=== PATIENT | female | born 1990 | race African-American/Black ===

== ENCOUNTER 2017-12-08 12:03 | Emergency (ER) | payer MEDICAID ==
--- NOTE | 2017-12-08 16:44 | ED Physician Chart ---
ED Chief Complaint/HPI - Patient Information Date Seen:: 12/08/17 Time Seen:: 12:15 Chief Complaint:: Toothaches History of Present Illness:: onset x 3 days of toothaches; pt denies trauma, LOC, ALOC, AMS, E/As, H/As, S/T , neck pain, C/P, cough, SOB, congestion, Abd. Pain, A/N/V/D/C, fever, chills, or urinary s/s; pt is eating and is urinating well; pt last urinated one hour [employer] Allergies:: Allergies Allergy/AdvReac Type Severity Reaction Status Date / Time bacitracin AdvReac Verified 12/08/17 12:16 [From Neosporin ([id number])] neomycin AdvReac Verified 12/08/17 12:16 [From Neosporin ([id number])] polymyxin B AdvReac Verified 12/08/17 12:16 [From Neosporin ([id number])] Vitals:: Vital Signs - 8 hr 12/08/17 12/08/17 12:16 12:21 Temp 99.1 F 99.1 F HR 80 85 RR 18 18 BP 170/110 170/110 O2 Sat % 99 99 Historian:: Patient Review:: Nurse's Note Reviewed ED Review of Systems - Review of Systems General/Constitutional: No fever, No chills, No weight loss, No weakness, No diaphoresis, No edema, No loss of appetite Skin: No skin lesions, No rash, No bruising Head: No headache, No light-headedness Eyes: No loss of vision, No pain, No diplopia ENT: No earache, No nasal drainage, No sore throat, No tinnitus, Other ( Toothaches) Neck: No neck pain, No swelling, No thyromegaly, No stiffness, No mass noted Cardio Vascular: No chest pain, No palpitations, No PND, No orthopnea, No edema Pulmonary: No SOB, No cough, No sputum, No wheezing GI: No nausea, No vomiting, No diarrhea, No pain, No melena, No hematochezia, No constipation, No hematemesis G/U: No dysuria, No frequency, No hematuria, No nacturia Risk Compliance Manager: No vaginal discharge, No abnormal vaginal bleed, No contraction Musculoskeletal: No bone or joint pain, No back pain, No muscle pain Endocrine: No polyuria, No polydipsia Psychiatric: No prior psych history, No depression, No anxiety, No suicidal ideation, No homicidal ideation, No auditory hallucination, No visual hallucination Hematopoietic: No bruising, No lymphadenopathy Allergic/Immuno: No urticaria, No angioedema Neurological: No syncope, No focal symptoms, No weakness, No paresthesia, No headache, No seizure, No dizziness, No confusion, No vertigo ED Past Medical History - Past Medical History Obtainable: Yes Past Medical History: HTN Family History: HTN Social History: Non Smoker, No Alcohol, No Drug Use, Single Surgical History: None Psychiatricy History: None Medication: Reviewed Family Medical History - Family Member Mother History Unknown: Yes Living Status: Still Living Hx Family Cancer: No Hx Family Coronary Artery Disease: No Hx Family Diabetes: No Hx Family Seizures: No Hx Family AIDS: No Hx Family HIV: No Hx Family Hepatitis: No ED Physical Exam - Physical Examination General/Constitutional: Awake, Well-developed, well-nourished, Alert, No distress, GCS 15, Non-toxic appearing, Ambulatory Head: Atraumatic Eyes: Lids, conjuctiva normal, PERRL, EOMI Skin: Nl inspection, No rash, No skin lesions, No ecchymosis, Well hydrated, No lymphadenopathy ENMT: External ears, nose nl, TM canals nl, Nasal exam nl, Lips, teeth, gums nl , Oropharynx nl, Tonsils nl Other ENMT comments:: + Left Upper Gingivitis; no abscesses; no airway obstruction; no FBs Neck: Nontender, Full ROM w/o pain, No JVD, No nuchal rigidity, No bruit, No mass, No stridor Other Neck comments:: Supple; no meningeal signs; no cervical tenderness; no bruits Respiratory: Nl effort/Exclusion, Clear to Auscultation, No Wheeze/Rhonchi/Rales Cardio Vascular: RRR, No murmur, gallop, rubs, NL S1 S2, Carotid/Femoral/Distal pulses equal bilaterally GI: No tenderness/rebounding/guarding, No organomegaly, No hernia, Normal BS's, Nondistended, No mass/bruits, No McBurney tenderness Other GI comments:: no pulsatile masses : No CVA tenderness Extremities: No tenderness or effusion, Full ROM, normal strength in all extremities, No edema, Normal digits & nails Neuro/Psych: Alert/oriented, DTR's symmetric, Normal sensory exam, Normal motor strength, Judgement/insight normal, Mood normal, Normal gait, No focal deficits Other Neuro/Psych comments:: no focal signs Misc: Normal back, No paraspinal tenderness ED Septic Shock - . Is Septic Shock (SBP<90, OR Lactate>4 mmol\L) present?: No - <6hrs of presentation: Vital Signs: Vital Signs - 8 hr 12/08/17 12/08/17 12:16 12:21 Temp 99.1 F 99.1 F HR 80 85 RR 18 18 BP 170/110 170/110 O2 Sat % 99 99 ED Reassessment (Disposition) - Reassessment Reassessment:: pt's final BP: 130/85; pt tolerated po fluids well in ER; pt is asymptomatic upon discharge Reassessment Condition:: Improved - Diagnosis Diagnosis:: Dx: Hypertension; Toothaches; Gingivitis; Dental Pain; Gum Infection - Aftercare/Follow up Instructions Aftercare/Follow-Up Instructions:: Counseled pt regarding lab results/diagnosis & need follow up, Refer to Discharge Instructions, Counseled pt & family regarding lab results/diagnosis & need follow up Medication Prescribed:: Rx: Penicillin VK 250mg po qid x 10 days; Tylenol #3: one tablet po tid prn pain (#10); take medicaltions as prescribed; Tooth Care/Gum Care/Dental Care Instructions; Have Blood Pressure re-checked in one daY - Patient Disposition Discharge/Transfer:: Home Condition at Disposition:: Stable, Improved (RTER prn if existing s/s reoccur and/or get worse and/or any other new s/s occur; ACIs given for all above Dx; Refer to Dentist/ENT Specialist/Tax Auditor MIGUEL ANGEL; F/U with PMD in one day or prn; RTER prn if concerned)
== END 2017-12-08 12:30 | disposition home or self-care (01) ==
LOC: ER 12:03
DX: K05.10 Chronic gingivitis, plaque induced (principal); I10 Essential (primary) hypertension; K08.89 Other specified disorders of teeth and supporting structures; Z88.1 Allergy status to other antibiotic agents
CPT/HCPCS: Z7502

== ENCOUNTER 2017-12-15 16:50 | Emergency (ER) | payer MEDICAID | END 2017-12-15 17:25 | disposition left against medical advice (07) | LOC: ER 16:50 | DX: K08.89 Other specified disorders of teeth and supporting structures (principal) ==

== ENCOUNTER 2018-04-26 21:35 | Emergency (ER) | payer MEDICAID ==
--- NOTE | 2018-04-26 22:30 | ED Physician Chart ---
ED Chief Complaint/HPI - Patient Information Date Seen:: 04/26/18 Time Seen:: 22:25 Chief Complaint:: Teethache History of Present Illness:: 27 yo female had left upper wisdom teeth removed by oral surgeon 2 months ago. Pt's dentist saw her 2 weeks and noted fragments in the gum that had been causing pain. Pt stated constant localized pain (7.5/10) in the left upper gum. Pt denied fever. Pt's dentist gave tylenol 3 which was finished two days ago. Pt had appointment with her dentist in 3 days. Allergies:: Allergies Allergy/AdvReac Type Severity Reaction Status Date / Time azithromycin Allergy Verified 04/26/18 22:05 bacitracin AdvReac Verified 12/08/17 12:16 [From Neosporin ([id number])] neomycin AdvReac Verified 12/08/17 12:16 [From Neosporin ([id number])] polymyxin B AdvReac Verified 12/08/17 12:16 [From Neosporin ([id number])] Vitals:: Vital Signs - 8 hr 04/26/18 21:45 Temp 98.4 F HR 98 RR 18 BP 151/93 O2 Sat % 99 ED Review of Systems - Review of Systems General/Constitutional: No fever Skin: No rash Head: No headache Eyes: No pain ENT: No nasal drainage Neck: No neck pain Cardio Vascular: No chest pain Pulmonary: No SOB GI: No nausea, No vomiting Musculoskeletal: No back pain Psychiatric: Prior psych history Neurological: No focal symptoms ED Past Medical History - Past Medical History Past Medical History: HTN, Other (obesity) Social History: Non Smoker, No Alcohol, No Drug Use Surgical History: other (Bilateral ear tubes) Psychiatricy History: Depression Family Medical History - Family Member Mother History Unknown: Yes Living Status: Still Living Hx Family Cancer: No Hx Family Coronary Artery Disease: No Hx Family Diabetes: No Hx Family Seizures: No Hx Family AIDS: No Hx Family HIV: No Hx Family Hepatitis: No ED Physical Exam - Physical Examination General/Constitutional: Awake, Alert Head: Atraumatic Eyes: PERRL Skin: No skin lesions ENMT: Nasal exam nl Other ENMT comments:: Left upper gingiva without erythema or purulent drainage Neck: No nuchal rigidity Respiratory: No Wheeze/Rhonchi/Rales Cardio Vascular: RRR, No murmur, gallop, rubs, NL S1 S2 GI: No tenderness/rebounding/guarding Extremities: No tenderness or effusion, normal strength in all extremities Neuro/Psych: No focal deficits ED Assessment - Assessment General Assessment: Left upper gingiva pain due to residual fragmented tooth Morbid obesity Assessment/Comments:: I advised pt that no Tylenol - 3 will be prescribed at ER. Pt asked, "how about tramadol?" I said no and offered toradol IM instead. Pt refused and eloped. ED Septic Shock - . Is Septic Shock (SBP<90, OR Lactate>4 mmol\\L) present?: No - <6hrs of presentation: Vital Signs: Vital Signs - 8 hr 04/26/18 21:45 Temp 98.4 F HR 98 RR 18 BP 151/93 O2 Sat % 99 ED Reassessment (Disposition) - Reassessment Reassessment Condition:: Unchanged - Patient Disposition Discharge/Transfer:: Elope/[facility]ARLIN
== END 2018-04-26 22:40 | disposition left against medical advice (07) ==
LOC: ER 21:35
DX: K08.89 Other specified disorders of teeth and supporting structures (principal); I10 Essential (primary) hypertension; F32.9 Major depressive disorder, single episode, unspecified; Z88.1 Allergy status to other antibiotic agents
CPT/HCPCS: Z7502

== ENCOUNTER 2018-07-21 16:16 | Emergency (ER) | payer MEDICAID ==
--- NOTE | 2018-07-21 17:00 | ED Physician Chart ---
ED Chief Complaint/HPI - Patient Information Date Seen:: 07/21/18 Time Seen:: 16:40 Chief Complaint:: cough History of Present Illness:: Patient's had cough productive of yellow sputum (which has now become paler than it was initially) for 2 weeks. Patient was seen at [facility] 2 weeks ago and prescribed albuterol metered-dose inhaler plus cough medication (Robitussin-DM and Phenergan with codeine) which helped. Allergies:: Allergies Allergy/AdvReac Type Severity Reaction Status Date / Time azithromycin Allergy Verified 04/26/18 22:05 bacitracin AdvReac Verified 12/08/17 12:16 [From Neosporin ([id number])] neomycin AdvReac Verified 12/08/17 12:16 [From Neosporin ([id number])] polymyxin B AdvReac Verified 12/08/17 12:16 [From Neosporin ([id number])] Historian:: Patient Review:: Nurse's Note Reviewed ED Review of Systems - Review of Systems General/Constitutional: No fever, No chills Skin: No skin lesions Head: No headache Eyes: No loss of vision ENT: Other (decreased hearing left ear) Neck: No neck pain, No swelling Cardio Vascular: No chest pain Pulmonary: Cough, Sputum GI: No nausea, No vomiting, No diarrhea G/U: No dysuria Musculoskeletal: No bone or joint pain Endocrine: No polyuria, No polydipsia Psychiatric: No prior psych history, No depression, No anxiety Hematopoietic: No bruising Allergic/Immuno: No urticaria Neurological: No syncope, No focal symptoms ED Past Medical History - Past Medical History Past Medical History: HTN, Other (Vitale syndrome) Family History: HTN Social History: Non Smoker, No Alcohol Surgical History: other (myringotomy tubes) Psychiatricy History: None Medication: None Family Medical History - Family Member Mother History Unknown: Yes Living Status: Still Living Hx Family Cancer: No Hx Family Coronary Artery Disease: No Hx Family Diabetes: No Hx Family Seizures: No Hx Family AIDS: No Hx Family HIV: No Hx Family Hepatitis: No ED Physical Exam - Physical Examination General/Constitutional: Awake, Well-developed, well-nourished, Alert, No distress, GCS 15, Non-toxic appearing, Ambulatory Head: Atraumatic Eyes: Lids, conjuctiva normal, PERRL, EOMI Skin: Nl inspection, No rash, No skin lesions, No ecchymosis, Well hydrated, No lymphadenopathy ENMT: External ears, nose nl, Nasal exam nl, Lips, teeth, gums nl Other ENMT comments:: ceruminosis left external auditory canal; right tympanic membrane 1.5 out of 4 erythematous Neck: Nontender, Full ROM w/o pain, No JVD, No nuchal rigidity, No bruit, No mass, No stridor Respiratory: Nl effort/Exclusion, Clear to Auscultation, No Wheeze/Rhonchi/Rales Cardio Vascular: RRR, No murmur, gallop, rubs, NL S1 S2 GI: No tenderness/rebounding/guarding, No organomegaly, No hernia, Normal BS's, Nondistended, No mass/bruits, No McBurney tenderness : No CVA tenderness Extremities: No tenderness or effusion, Full ROM, normal strength in all extremities, No edema, Normal digits & nails Neuro/Psych: Alert/oriented, DTR's symmetric, Normal sensory exam, Normal motor strength, Judgement/insight normal, Mood normal, Normal gait, No focal deficits Misc: Normal back, No paraspinal tenderness ED Assessment - Assessment General Assessment: Plan was to prescribe the patient amoxicillin 500 mg 3 times a day for 10 days, albuterol metered-dose inhaler to use 2 puffs every 4 hours as necessary for cough or shortness of breath and Robitussin-DM 4 ounces to take 2 teaspoons 4 times a day as necessary for cough. I give patient instructions on how to remove the wax from her left ear. I informed the patient that I would not prescribe any promethazine with codeine elixir or any other narcotic containing medications. Patient was discharged as stated she did not want a prescription for any medications and that [facility] which she wanted. ED Septic Shock - . Is Septic Shock (SBP<90, OR Lactate>4 mmol\L) present?: No ED Reassessment (Disposition) - Reassessment Reassessment Condition:: Unchanged - Diagnosis Diagnosis:: Bronchitis - Patient Disposition Discharge/Transfer:: Home Condition at Disposition:: Stable, Unchanged
== END 2018-07-21 16:55 | disposition home or self-care (01) ==
LOC: ER 16:16
DX: J40 Bronchitis, not specified as acute or chronic (principal); I10 Essential (primary) hypertension; Z88.1 Allergy status to other antibiotic agents
CPT/HCPCS: Z7502